=== PATIENT | male | born 1960 | race African-American/Black ===

== ENCOUNTER → 2016-11-28 | Outpatient (CLI) | payer BC | END | disposition home or self-care (01) | LOC: PCVCIMAG 12:55 | PROVIDERS: ATTEND Internal Medicine Cardiovascular Disease | DX: I10 Essential (primary) hypertension (principal); E78.00 Pure hypercholesterolemia, unspecified; I48.0 Paroxysmal atrial fibrillation | CPT/HCPCS: 93325; 93351 ==

== ENCOUNTER → 2017-04-15 | Outpatient (CLI) | payer BC ==
--- NOTE | 2017-04-15 17:17 | PCVCIMAG ---
APPROVED REPORT Study performed: 04/15/2017 09:57:10 EXAM: Comprehensive 2D, Doppler, and color-flow Echocardiogram Status: routine Other Information Study Quality: Adequate Risk Factors: Cardiac Risk Factors: HTN, Hyperlipidemia Indications Atrial Fibrillation 2D Dimensions LVEF(%): 63.26 (>50%) IVSd: 10.22 (7-11mm) LVDd: 52.10 mm PWd: 10.56 (7-11mm) LVDs: 34.11 (25-40mm) Left Atrium: 37.87 (27-40mm) Aortic Root: 30.36 mm LV Single Plane 4CH: 37.96 % LV Single Plane 2CH: 51.96 %Johnston's LVEF: 44.96 % Biplane EF: 47.0 % Volumes Left Atrial Volume (Systole) Single Plane 4CH: 59.89 mLSingle Plane 2CH: 60.71 mL LA ESV Index: 28.00 mL/m2 Aortic Valve AoV Peak Amari.: 1.03 m/s AO Peak Gr.: 4.26 mmHgLVOT Max P.72 mmHg LVOT Max V: 0.66 m/s Pulmonary Valve PV Peak Amari.: 0.96 m/sPV Peak Gr.: 3.69 mmHg Tricuspid Valve TR Peak Amari.: 2.07 m/s TR Peak Gr.: 17.24 mmHg Left Ventricle The left ventricle is normal size. There is normal LV segmental wall motion. There is normal left ventricular wall thickness. Left ventricular systolic function is mildly decreased. LVEF is 45%. The left ventricular diastolic function is normal. Right Ventricle The right ventricle is normal size. The right ventricular systolic function is normal. Atria The left atrium size is normal. The right atrium size is normal. Aortic Valve The aortic valve is normal in structure. No aortic regurgitation is present. There is no aortic valvular stenosis. Mitral Valve The mitral valve is normal in structure. There is trace mitral valve regurgitation noted. No evidence of mitral valve stenosis. Tricuspid Valve The tricuspid valve is normal in structure. There is trivial tricuspid valve regurgitation noted with PAP of 24 mmHg. Pulmonic Valve The pulmonary valve is normal in structure. There is no pulmonic valvular regurgitation. Great Vessels The aortic root is normal in size. IVC is normal in size and collapses with >50% inspiration Pericardium There is no pericardial effusion. <Conclusion> The left ventricle is normal size. There is normal left ventricular wall thickness. LVEF is 45%. The left ventricular diastolic function is normal. The right ventricle is normal size. The right ventricular systolic function is normal. The left atrium size is normal. The right atrium size is normal. The aortic valve is normal in structure. There is trace mitral valve regurgitation noted. There is no pericardial effusion.
== END | disposition home or self-care (01) ==
LOC: PCVCIMAG 09:30
PROVIDERS: ATTEND Internal Medicine Cardiovascular Disease
DX: I08.1 Rheumatic disorders of both mitral and tricuspid valves (principal); I48.0 Paroxysmal atrial fibrillation; I10 Essential (primary) hypertension; E78.00 Pure hypercholesterolemia, unspecified; Z79.82 Long term (current) use of aspirin; Z79.899 Other long term (current) drug therapy; Z88.0 Allergy status to penicillin
CPT/HCPCS: 80061; 93005; 93306; G0463